=== PATIENT | male | born 1945 | race Caucasian/White ===

== ENCOUNTER → 2018-07-22 | Outpatient (CLI) | payer MEDICARE, OTHER ==
[~2018-07-22] VITALS: Ht 172.7 cm; Wt 108.9 kg
[~2018-07-22] MED LIST: ASPI-1181 PO; CLOP75TA32 PO; CYCL10 PO; METO25TA6 PO; NITR0.4T SL; OXYB5TAB10 PO; PRAV40TA3 PO; TAMS0.4C32 PO; ZOLP10TA6 PO
[2018-07-26 11:43] VITALS: BP 121/95
== END | disposition home or self-care (01) ==
LOC: SHCH 15:34
PROVIDERS: ATTEND Internal Medicine Cardiovascular Disease
DX: I65.23 Occlusion and stenosis of bilateral carotid arteries (principal)
CPT/HCPCS: 93880

== ENCOUNTER 2018-07-29 05:50 | Observation (INO) | payer MEDICARE, OTHER ==
[2018-07-26 11:50] VITALS: BP 121/95
[2018-07-26 12:08] LABS: APPEARANCE,URINE Clear (CLEAR); BILIRUBIN,URINE Negative (NEGATIVE); COLOR,URINE Yellow (YELLOW); GLUCOSE, URINE (UA) Negative (NEGATIVE); KETONES,URINE Negative (NEGATIVE); LEUKOCYTE ESTERASE ,URINE Trace (NEGATIVE); NITRATE,URINE Negative (NEGATIVE); OCCULT BLOOD,URINE Negative (NEGATIVE); PROTEIN,URINE Negative (NEGATIVE)
[2018-07-26 12:09] LABS: BASOPHILS % (AUTO) 0.3 % (0.0-5.0); EOSINOPHILS % (AUTO) 3.5 % (0.0-8.0); HEMATOCRIT 41.4 % (42-54); LYMPHOCYTES % (AUTO) 21.4 % (21.0-51.0); MEAN CORPUSCULAR HEMOGLOBIN 31.4 pg (27.0-33.0); MEAN CORPUSCULAR VOLUME 92.4 fL (79-99); NEUTROPHILS % (AUTO) 66.8 % (40.0-77.0); NUCLEATED RED BLOOD CELLS 0.2 % (0.0-0.19); PLATELET COUNT (AUTO) 142 K/uL (130-400); RED BLOOD CELL COUNT(AUTO) 4.48 MIL/uL (4.50-6.20); RED CELL DISTRIBUTION WIDTH 13.5 % (11.0-15.5); WHITE BLOOD COUNT (AUTO) 5.6 K/uL (4.8-10.8)
[2018-07-26 12:19] LABS: CREATININE 0.9 mg/dL (0.5-1.5); POTASSIUM 4.3 mmol/L (3.5-5.1)
[2018-07-26 12:21] LABS: INR 1.15 (0.85-1.15); PARTIAL THROMBOPLASTIN TIME 32.6 SEC (26.3-35.5)
[2018-07-26 12:35] LABS: BACTERIA,URINE Rare /HPF (None Seen); RBC,URINE None Seen /HPF (0-1); SQUAMOUS EPITHELIAL CELL,UR Rare /HPF (0-2); WBC,URINE 0-1 /HPF (0-1)
[2018-07-29] VITALS (11 sets, daily range): BP systolic 116–136; BP diastolic 68–83
[~2018-07-29] VITALS: Ht 172.7 cm; Wt 108.5 kg
[~2018-07-29 05:50] MED LIST changes: -CLOP75TA32 PO; -NITR0.4T SL
[2018-07-29] MEDS ORDERED: SODIUM CHLORIDE 0.9% 1000ML 1,000 ML IV ONE (06:10)
--- NOTE | 2018-07-29 07:15 | NUR ---
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 PT AWAKE AND ALERT, SPOUSE AT BEDSIDE.
[2018-07-29] MEDS ORDERED: NITROGLYCERIN 5 MG/ML 10 ML VIAL IV ONE (07:20)
[2018-07-29] MEDS ORDERED: IOHEXOL-350 50ML VIAL IV ONE ×2 (07:20→08:28)
[2018-07-29] MEDS ORDERED: IOHEXOL 350 MG/ML 100ML INFUS..BTL IV ONE (07:20)
[2018-07-29] MEDS ORDERED: LIDOCAINE HCL 1% 20 ML VIAL ONE (07:20)
[2018-07-29] MEDS ORDERED: BIVALIRUDIN 250 MG/VIAL IV ONE (07:20)
[2018-07-29] MEDS ORDERED: FENTANYL CITRATE PF 50 MCG/1 ML 2ML VIAL ONE (07:39)
[2018-07-29] MEDS ORDERED: MIDAZOLAM HCL 1 MG/ML 2ML VIAL ONE (07:39)
[2018-07-29] MEDS ORDERED: IOHEXOL-350 75 ML VIAL IV ONE (07:45)
[2018-07-29] MEDS ORDERED: CLOPIDOGREL BISULFATE 300 MG TAB ONE (08:47)
[2018-07-29] MEDS ORDERED: ASPIRIN 325MG EC TAB 325 MG TABLET.DR PO ONE (08:47)
[2018-07-29] MEDS ORDERED: SODIUM CHLORIDE 0.9% 1000ML 1,000 ML IV SCH (08:50)
[2018-07-29] MEDS: ASPIRIN 81MG TAB.CHEW PO SCH (09:00)
[2018-07-29] MEDS ORDERED: GLUCAGON 1MG KIT 1 MG ML IM PRN (09:00)
[2018-07-29] MEDS ORDERED: CYCLOBENZAPRINE HCL 10 MG TABLET PO PRN (09:00)
[2018-07-29] MEDS: TAMSULOSIN HCL 0.4 MG CAP.ER.24H PO SCH (09:00)
[2018-07-29] MEDS ORDERED: METOPROLOL TARTRATE 1 MG/ML 5ML VIAL IV PRN (09:00)
[2018-07-29] MEDS ORDERED: DEXTROSE 50%-WATER 50 ML DISP.SYRIN IV PRN (09:00)
[2018-07-29] MEDS: METOPROLOL TARTRATE 25 MG TAB PO SCH ×2 (09:00→21:32)
[2018-07-29] MEDS: CLOPIDOGREL BISULFATE 75 MG TAB PO SCH (09:00)
[2018-07-29] MEDS: OXYBUTYNIN CHLORIDE 5 MG TABLET PO SCH (09:00)
--- NOTE | 2018-07-29 09:10 | NUR ---
PROCEDURE RECEIVED PT BACK FROM SANE RN, S/P [facility], RIGHT GROIN PERCLOSE DEVICE DRESSING DRY AND INTACT, NEUROVASCULAR CHECKS WNL. VS STABLE ON ARRIVAL. PLAN OF CARE DISCUSS WITH PATIENT/ SPOUSE, INSTRUCTED TO KEEP BEDREST FOR 3 HRS AND TO KEEP RIGHT LEG STRAIGHT. PT VERBALIZED UNDERSTANDING.
[2018-07-29] MEDS ORDERED: ZOLPIDEM TARTRATE 5 MG TAB PO PRN (09:15)
--- NOTE | 2018-07-29 12:00 | NUR ---
REPORT REPORT GIVEN TO ROXI RIVERA RN AT TELEMETRY FLOOR.
--- NOTE | 2018-07-29 12:10 | NUR ---
TRANSFER PT TRANSFERRED TO TELEMETER ROOM 228, PT AWAKE AND ALERT,NO DISTRESS NOTED. DENIES ANY PAIN OR DISCOMFORTS. RIGHT GROIN PERCLOSE DRESSING DRY AND INTACT.
--- NOTE | 2018-07-29 12:50 | NUR ---
ARRIVAL TO FLOOR PT IS AAOX4 DENIES CP DENIES SOB DENIES NV NO COMPLAINTS, ARRIVAL TO ROOM VIA WC. RIGHT GROIN WNL. FAMILY AT BEDSIDE, CALL LIGHT WITHIN REACH.
--- NOTE | 2018-07-29 16:30 | NUR ---
STATUS UP IN CHAIR NO COMPLAINTS DENIES PAIN. CALL LIGHT WITHIN REACH.
[2018-07-29] MEDS ORDERED: ATORVASTATIN CALCIUM 10 MG TABLET PO SCH (21:00)
[2018-07-29] MEDS ORDERED: ASPIRIN 81 MG EC TAB PO SCH (21:00)
[2018-07-30 03:54] VITALS: BP 140/77
[2018-07-30 04:05] LABS: MEAN CORPUSCULAR HEMOGLOBIN 31.5 pg (27.0-33.0); MEAN CORPUSCULAR VOLUME 92.7 fL (79-99); PLATELET COUNT (AUTO) 131 K/uL (130-400); RED CELL DISTRIBUTION WIDTH 13.6 % (11.0-15.5); WHITE BLOOD COUNT (AUTO) 5.2 K/uL (4.8-10.8)
[2018-07-30] MEDS ORDERED: CLOP75TA32 PO (07:28)
[2018-07-30] MEDS: OXYBUTYNIN CHLORIDE 5 MG TABLET PO SCH (07:35)
[2018-07-30] MEDS: ASPIRIN 81MG TAB.CHEW PO SCH (07:35)
[2018-07-30] MEDS: METOPROLOL TARTRATE 25 MG TAB PO SCH (07:35)
[2018-07-30] MEDS: TAMSULOSIN HCL 0.4 MG CAP.ER.24H PO SCH (07:35)
[2018-07-30] MEDS: CLOPIDOGREL BISULFATE 75 MG TAB PO SCH (07:35)
[2018-07-30] MEDS ORDERED: NITR0.4T SL (07:39)
[2018-07-30 07:48] VITALS: BP 114/76
--- NOTE | 2018-07-30 08:00 | NUR ---
ASSESSMENT PT IS AAOX4 DENIES CP DENIES SOB DENIES NV NO COMPLAINTS RESTING SITTING UP IN CHAIR, RIGHT GROIN WNL. DR CHRIS DIETZ. PLAN FOR DC HOME TODAY.
--- NOTE | 2018-07-30 10:03 | NUR ---
DISCHARGE HOME PT VERBALIZES DC INSTRUCTIONS UNDERSTANDING AGREES TO FOLLOW UP WITH DR PEREZ ORDERED AND TAKE MEDS ORDERED. PIV REMOVED CATH TIP INTACT TELE PACK REMOVED. ALL BELONGINGS TAKEN, DOWN VIA WC TO VEHICLE.
== END 2018-07-30 10:00 | disposition home or self-care (01) ==
LOC: DAH 05:50 → DAHIP 05:51 → 2DH 12:36
PROVIDERS: ADMIT Internal Medicine Cardiovascular Disease; ATTEND Internal Medicine Cardiovascular Disease
DX: I25.810 Atherosclerosis of coronary artery bypass graft(s) without angina pectoris (principal); I35.0 Nonrheumatic aortic (valve) stenosis; I50.32 Chronic diastolic (congestive) heart failure; N40.0 Benign prostatic hyperplasia without lower urinary tract symptoms
CPT/HCPCS: 36415 ×3; 71045; 80048 ×2; 80061; 81001; 83880; 85025; 85027; 85610; 85730; 93005; 93455; A4606; C1725 ×2; C1760; C1769 ×2; C1876; C1887; C1894 ×3; C9600; G0378 ×28; J0583; J1644; J2250; J3010; J3490; J7030; Q9965; Q9967 ×3; 93459; 99156; 99157

== ENCOUNTER 2018-10-14 09:38 | Inpatient (IN) | payer MEDICARE, OTHER | END 2018-10-18 13:20 | disposition home or self-care (01) | LOC: DAHIP 09:38 → 2CH 10-15 05:20 → 2DH 10-16 12:58 → 2CV 14:31 | PROC: 02RF0JZ Replacement of Aortic Valve with Synthetic Substitute, Open Approach (ICD-10-PCS; principal; 2018-10-14 12:00) | DX: I25.10 Atherosclerotic heart disease of native coronary artery without angina pectoris (principal); I35.0 Nonrheumatic aortic (valve) stenosis; M48.00 Spinal stenosis, site unspecified ==

== ENCOUNTER → 2019-01-13 | Outpatient (CLI) | payer MEDICARE ==
[~2019-01-13] MED LIST changes: +ALBU2.5V2 IH; +CLOP75TA32 PO; -CYCL10 PO; +NITR0.4T SL; -ZOLP10TA6 PO
== END | disposition home or self-care (01) ==
LOC: SHCH 11:14
PROVIDERS: ATTEND Internal Medicine Cardiovascular Disease
DX: I11.9 Hypertensive heart disease without heart failure (principal); Z95.2 Presence of prosthetic heart valve
CPT/HCPCS: 71046; 93306

== ENCOUNTER → 2021-12-22 | Outpatient (CLI) | payer MEDICARE ==
[~2021-12-22] MED LIST changes: -ASPI-1181 PO; +ASPI-1443 PO; +CYCL10TA16 PO; +GABA300S PO; +LIDOCAINE HCL 4% LTA SOL 4 ML VIAL TP ONE; -OXYB5TAB10 PO; +OXYB5TAB15 PO; +TAMS-1 PO; -TAMS0.4C32 PO; +ZOLP10TA2 PO
== END | disposition home or self-care (01) ==
LOC: WHH 11:07
PROVIDERS: ATTEND Family Medicine
DX: I70.235 Atherosclerosis of native arteries of right leg with ulceration of other part of foot (principal); L97.512 Non-pressure chronic ulcer of other part of right foot with fat layer exposed; I25.10 Atherosclerotic heart disease of native coronary artery without angina pectoris; J44.9 Chronic obstructive pulmonary disease, unspecified; N18.6 End stage renal disease; E03.9 Hypothyroidism, unspecified; I48.91 Unspecified atrial fibrillation; E66.9 Obesity, unspecified; Z68.26 Body mass index [BMI] 26.0-26.9, adult; Z79.899 Other long term (current) drug therapy; Z99.2 Dependence on renal dialysis; Z95.1 Presence of aortocoronary bypass graft
CPT/HCPCS: 11042

== ENCOUNTER → 2021-12-29 | Outpatient (CLI) | payer MEDICARE ==
[~2021-12-29] MED LIST changes: +HONEY 1 APPL/ML TUBE TP ONE
== END | disposition home or self-care (01) ==
LOC: WHH 11:14
PROVIDERS: ATTEND Family Medicine
DX: I70.235 Atherosclerosis of native arteries of right leg with ulceration of other part of foot (principal); L97.512 Non-pressure chronic ulcer of other part of right foot with fat layer exposed; I25.10 Atherosclerotic heart disease of native coronary artery without angina pectoris; J44.9 Chronic obstructive pulmonary disease, unspecified; N18.6 End stage renal disease; E03.9 Hypothyroidism, unspecified; I48.91 Unspecified atrial fibrillation; E66.9 Obesity, unspecified; Z68.26 Body mass index [BMI] 26.0-26.9, adult; Z79.899 Other long term (current) drug therapy; Z99.2 Dependence on renal dialysis; Z95.1 Presence of aortocoronary bypass graft
CPT/HCPCS: 11042

== ENCOUNTER → 2022-01-30 | Outpatient (CLI) | payer MEDICARE ==
[~2022-01-30] MED LIST changes: -HONEY 1 APPL/ML TUBE TP ONE
== END | disposition home or self-care (01) ==
LOC: WHH 10:12
PROVIDERS: ATTEND Family Medicine
DX: I70.235 Atherosclerosis of native arteries of right leg with ulceration of other part of foot (principal); L97.512 Non-pressure chronic ulcer of other part of right foot with fat layer exposed; I25.10 Atherosclerotic heart disease of native coronary artery without angina pectoris; J44.9 Chronic obstructive pulmonary disease, unspecified; N18.6 End stage renal disease; E03.9 Hypothyroidism, unspecified; I48.91 Unspecified atrial fibrillation; E66.9 Obesity, unspecified; Z68.26 Body mass index [BMI] 26.0-26.9, adult; Z79.899 Other long term (current) drug therapy; Z99.2 Dependence on renal dialysis; Z95.1 Presence of aortocoronary bypass graft
CPT/HCPCS: 11042

== ENCOUNTER → 2022-02-23 | Outpatient (CLI) | payer MEDICARE ==
[~2022-02-23] MED LIST changes: +GENTAMICIN 15 GM CREAM TP ONE
== END | disposition home or self-care (01) ==
LOC: WHH 09:04
PROVIDERS: ATTEND Family Medicine
DX: I70.235 Atherosclerosis of native arteries of right leg with ulceration of other part of foot (principal); L97.512 Non-pressure chronic ulcer of other part of right foot with fat layer exposed; I25.10 Atherosclerotic heart disease of native coronary artery without angina pectoris; J44.9 Chronic obstructive pulmonary disease, unspecified; N18.6 End stage renal disease; E03.9 Hypothyroidism, unspecified; I48.91 Unspecified atrial fibrillation; E66.9 Obesity, unspecified; Z68.26 Body mass index [BMI] 26.0-26.9, adult; Z79.899 Other long term (current) drug therapy; Z99.2 Dependence on renal dialysis; Z95.1 Presence of aortocoronary bypass graft
CPT/HCPCS: 11042; A4450